=== PATIENT | male | born 1945 | race Caucasian/White ===

== ENCOUNTER 2018-04-06 09:54 | Inpatient (IN) | payer OTHER, MEDICARE, BC ==
[~2018-04-06] VITALS: Ht 172.7 cm; Wt 133.6 kg
[~2018-04-06 09:54] MED LIST: ALLO100 PO; ASPI81CH PO; ASPI81EC PO; ATOR20 PO; Amlodipine Besy10 MG PO; Ativan0.5 MG PO; BUME2 PO; CALCAVITD PO; DOCU100 PO; Desyrel50 MG PO; FISH1000 PO; HYDCHL12.5 PO; K-Dur20 MEQ PO; LOSA25 PO; Lasix20 MG PO; METO25 PO; OMEP20ER PO; OMEPRAZOLE MAGN20 MG PO; POTA10T PO; POTCHL10ER PO; TRAM50 PO; [UNRECOGNIZED DRUG - REMARK]
[2018-04-06 10:47] LABS: BASOPHILS ABSOLUTE AUTO 0.03 K/mm3 (0.00-0.23); BASOPHILS PERCENT AUTO 0 % (0-2); EOSINOPHILS ABSOLUTE AUTO 0.06 K/mm3 (0.00-0.68); EOSINOPHILS PERCENT AUTO 1 % (0-6); Hematocrit 50.7 % (37.0-53.0); Hemoglobin 17.6 g/dL (13.5-17.5); IMMATURE GRAN ABSOLUTE AUTO 0.03 K/mm3 (0.00-0.10); IMMATURE GRAN PERCENT AUTO 0 % (0-1); LYMPHOCYTES ABSOLUTE AUTO 1.04 K/mm3 (0.84-5.20); LYMPHOCYTES PERCENT AUTO 12 % (21-46); MONOCYTES ABSOLUTE AUTO 0.75 K/mm3 (0.16-1.47); MONOCYTES PERCENT AUTO 9 % (4-13); Mean Corpuscular HGB 28.8 pg (26.0-34.0); Mean Corpuscular HGB Conc 34.7 g/dL (31.5-36.5); Mean Corpuscular Volume 83 fL (80-100); Mean Platelet Volume 11.8 fL (9.1-12.4); NEUTROPHILS ABSOLUTE AUTO 6.58 K/mm3 (1.96-9.15); NEUTROPHILS PERCENT AUTO 78 % (41-73); Platelet Count 220 K/mm3 (150-400); RDW Coefficient Variation 13.2 % (11.7-14.2); RDW Standard Deviation 39.9 fL (35.1-46.3); Red Blood Cell Count 6.11 M/mm3 (4.30-5.90); White Blood Cell Count 8.49 K/mm3 (4.00-11.30)
[2018-04-06] MEDS ORDERED: ATOR20 PO (10:55)
[2018-04-06] MEDS ORDERED: BUME2 PO (10:56)
[2018-04-06] MEDS ORDERED: CIPR250 PO (10:57)
[2018-04-06] MEDS ORDERED: GABA300 PO (10:58)
[2018-04-06] MEDS ORDERED: ESCI5 PO (10:58)
[2018-04-06] MEDS ORDERED: METO2.5 PO (10:58)
[2018-04-06] MEDS ORDERED: NEOPOLDEXS (10:59)
[2018-04-06] MEDS ORDERED: TOPI25 PO (10:59)
[2018-04-06] MEDS ORDERED: Phentermine HCl15 MG PO (10:59)
[2018-04-06 11:07] LABS: Troponin I 0.186 ng/mL (0.000-0.040)
[2018-04-06 11:09] LABS: Albumin, Blood 3.7 g/dL (3.4-5.0); Albumin/Globulin Ratio 0.9 (0.8-1.8); Bilirubin, Total 1.3 mg/dL (0.1-1.0); Bun/Creatinine Ratio 19.8 (12.0-20.0); Creatinine, Blood 2.37 mg/dL (0.60-1.20); Globulin, Blood 4.3 g/dL (2.2-4.0); Potassium, Blood 3.1 mmol/L (3.5-5.5)
[2018-04-06 14:00] LABS: Glucose, Blood 655 mg/dL (70-99)
[2018-04-06 14:39] LABS: Glucose, Blood 537 mg/dL (70-99)
[2018-04-06 15:42] LABS: Glucose, Blood 393 mg/dL (70-99); Troponin I 0.195 ng/mL (0.000-0.040)
--- NOTE | 2018-04-06 15:42 | NUR ---
1345: PT TO ICU 3 FROM ER AT THIS TIME, REPORT RECEIVED. CARDIAC MONITORING INITIATED, INSULIN INFUSING AT 12.9U/HR FROM ER, POTASSIUM AND NS INFUSING PER ORDERS. PT AWAKE, A&OX4, REPORTS RLQ PAIN AND LEFT LE CRAMPING X3-4 DAYS, WELL N/V AND WEAKNESS. PT HAS FALLEN AT HOME 3 TIMES RECENTLY, NEW SCAR NOTED TO LEFT KNEE SECONDARY TO FALL AT HOME. HRR, LS CLEAR, DIM IN BASES, BT DECREASED, PT REPORTS LAST BM 02/01/19 WITH ASSISTANCE OF MAG OLIVEIRA, PT HAS BEEN REPORTEDLY CONSTIPATED FOR SOME TIME NOW. 1400: LAB REPORTS LAST GLUCOSE 655, INSULIN GTT AT 10U/HR, NEXT BLOOD GLUCOSE LEVEL DRAWN NOW. 1430: BLOOD GLUCOSE 537, NO CHANGES MADE TO INSULIN GTT. PT'S FAMILY AT BEDSIDE, PT CONTINUES TO C/O LE CRAMPING AND RLQ PAIN.
--- NOTE | 2018-04-06 15:56 | NUR ---
1555: 1500 GLUCOSE 393, INSULIN GTT DECREASED TO 5U/HR AT THIS TIME. PT CONTINUES TO SLEEP, VSS. NO COUGHING NOTED AT THIS TIME.
--- NOTE | 2018-04-06 16:08 | NUR ---
1600: CBG 287, INSULIN GTT DECREASED TO 1U/HR, DR. MAIER NOTIFIED OF CBG LEVEL. NEW ORDERS RECEIVED, DR. MAIER STATES TO "LEAVE INSULIN DRIP ON THROUGHOUT THE NIGHT." WILL CONTINUE TO MONITOR SUGARS Q1H.
--- NOTE | 2018-04-06 17:08 | NUR ---
1705: CBG 249, INSULIN GTT REMAINS AT 1U/HR, D5 0.45NS INFUSION INITIATED PER ORDERS FOR CBG <250. RT AT BEDSIDE TO SET UP PT'S HOME CPAP.
--- NOTE | 2018-04-06 17:18 | NUR ---
1715: SPO2 97%, OXYGEN DECREASED TO 5L/OXYMIZER. HR 70'S, PT DENIES SOB, C/O, OR NEEDS AT THIS TIME.
[2018-04-06 18:15] LABS: Bun/Creatinine Ratio 18.5 (12.0-20.0); Calcium, Blood 9.2 mg/dL (8.5-10.1); Creatinine, Blood 2.38 mg/dL (0.60-1.20); Potassium, Blood 3.4 mmol/L (3.5-5.5)
--- NOTE | 2018-04-06 18:33 | NUR ---
1800: CBG 255, INSULIN GTT INCREASED TO 2U/HR AT THIS TIME. FAMILY REMAINS AT BEDSIDE, PT DENIES NEEDS. 1824: PT C/O 10/03 LLE PAIN, STATES THE PAIN RADIATES INTO BUTTOCK, REPORTS HX OF BACK INJURY WITH SUBSEQUENT SCIATICA. PT MEDICATED WITH FENTANYL PER ORDERS. CPAP PLACED AT THIS TIME WITH 3L OXYGEN, SPO2 91%, PT RESTING WITH EYES CLOSED.
--- NOTE | 2018-04-06 19:02 | NUR ---
1900: CBG 306, INSULIN GTT INCREASED TO 4U/HR. PT SLEEPING, VSS WIHT CPAP, REPORT TO ONCOMING NURSE.
--- NOTE | 2018-04-06 20:00 | NUR ---
ASSUMING CARE RECEIVED PT REPORT FROM KELLEE FLETCHER PT IS ADMITTED DUE TO [facility]. PT IS ALERT AND ORIENTED AT THE TIME OF SHIFT REPORT. PT IS ON INSULIN GTT AT THE TIME CARE ASSUMED, INSULIN GTT IS RUNNING AT 4UNITS/HR. AFTER CARE ASSUMED INSULIN WAS INCREASED TO 5U/HR WITH NEXT CBG CHECK. PT IS ON HOME CPAP UNIT WHILE ASLEEP. PT IS RECEIVING 3L O2 THROUGH CPAP. PT HR IS MAINTAINING IN THE 70-80 RANGE. BP IS STABLE AT THIS TIME. PT IS RECEIVING D5 1/2 NS AT A RATE OF 200ML/HR. PT IS SOMEWHAT WEAK WITH TRANSFERS AND REQUIRES ASSISTANCE WITH TRANSFERS TO BEDSIDE COMMODE. PT IS A MOD ASSIST. PT IS ABLE TO REPOSITION SELF IN BED WITHOUT ASSISTANCE. ASSUMING CARE OF PT AT THE TIME OF SHIFT REPORT. WILL CONTINUE TO MONITOR PT.
[2018-04-07 04:23] LABS: BASOPHILS ABSOLUTE AUTO 0.04 K/mm3 (0.00-0.23); BASOPHILS PERCENT AUTO 0 % (0-2); EOSINOPHILS ABSOLUTE AUTO 0.23 K/mm3 (0.00-0.68); EOSINOPHILS PERCENT AUTO 2 % (0-6); Hematocrit 50.2 % (37.0-53.0); Hemoglobin 16.7 g/dL (13.5-17.5); IMMATURE GRAN ABSOLUTE AUTO 0.04 K/mm3 (0.00-0.10); IMMATURE GRAN PERCENT AUTO 0 % (0-1); LYMPHOCYTES ABSOLUTE AUTO 1.32 K/mm3 (0.84-5.20); LYMPHOCYTES PERCENT AUTO 13 % (21-46); MONOCYTES ABSOLUTE AUTO 0.83 K/mm3 (0.16-1.47); MONOCYTES PERCENT AUTO 8 % (4-13); Mean Corpuscular HGB 28.6 pg (26.0-34.0); Mean Corpuscular HGB Conc 33.3 g/dL (31.5-36.5); Mean Platelet Volume 11.4 fL (9.1-12.4); NEUTROPHILS ABSOLUTE AUTO 7.76 K/mm3 (1.96-9.15); NEUTROPHILS PERCENT AUTO 76 % (41-73); Platelet Count 205 K/mm3 (150-400); RDW Coefficient Variation 13.2 % (11.7-14.2); RDW Standard Deviation 41.3 fL (35.1-46.3); Red Blood Cell Count 5.84 M/mm3 (4.30-5.90); White Blood Cell Count 10.22 K/mm3 (4.00-11.30)
[2018-04-07 04:24] LABS: Mean Corpuscular Volume 86 fL (80-100)
[2018-04-07 04:50] LABS: Albumin, Blood 3.3 g/dL (3.4-5.0); Anion Gap 8 mmol/L (6-16); Blood Urea Nitrogen 40 mg/dL (8-24); CO2, Blood 33 mmol/L (21-32); Calcium, Blood 8.6 mg/dL (8.5-10.1); Chloride, Blood 91 mmol/L (98-108); Creatinine, Blood 2.11 mg/dL (0.60-1.20); Glomerular Filtration Rate 33 (60-); Glucose, Blood 189 mg/dL (70-99); Phosphorus, Blood 2.8 mg/dL (2.5-4.9); Potassium, Blood 2.9 mmol/L (3.5-5.5); Sodium, Blood 132 mmol/L (136-145)
--- NOTE | 2018-04-07 06:44 | NUR ---
SHIFT SUMMARY NOTE PT HAS REMAINED ALERT AND ORIENTED THROUGH THE NIGHT WHILE AWAKE. PT HAS USED HOME CPAP THROUGH THE NIGHT WHILE SLEEPING. CPAP CONTINUES TO HAVE 3L O2 BLEED IN. PT HAS BEEN ABLE TO APPLY AND REMOVE CPAP WITHOUT ASSISTANCE THROUGH THE NIGHT. PT REMAINS ON INSULIN GTT. INSULIN GTT IS CURRENTLY RUNNING AT 4 UNITS/HR. MOST RECENT CBG IS APPROX 204. PT REMAINS ON D5 1/2 NS AT 200ML/HR. PT IS RECEIVING KVL 40MEQ IV AT THIS TIME. PT WAS PROVIDED TYLENOL X1 FOR HEADACHE THROUGH THE NIGHT. PT VITALS HAVE REMAINED STABLE THROUGH THE NIGHT. WILL REPORT OFF TO [facility] DAY SHIFT NURSE.
--- NOTE | 2018-04-07 09:39 | NUR ---
0715: CARE ASSUMED, ASSESSMENT COMPLETED. PT RESTING IN BED, CPAP ON, VSS. PT REPORTS BILATERAL LEG CRAMPING 4/10, BUT QUICKLY FALLS BACK ASLEEP AFTER REPOSITIONING, NO PAIN MEDICATIONS ADMINISTERED AT THIS TIME. INSULING GTT AT 4U/HR, POTASSIUM AND D5 0.45%NS INFUSING PER ORDERS. PT ORIENTED X4, DROWSY. 0830: DR. MAIER AT BEDSIDE, PT AWAKE TO TALK TO DR, THEN FALLS BACK ASLEEP. 0930: FAMILY AT BEDSIDE, PT UP WITH P.T. IN ROOM, GOOD EFFORT, GAIT STEADY WITH WALKER AND 1 PERSON ASSIST. PT REMAINS SITTING AT BEDSIDE VISITING WITH FAMILY, ALERT AND ORIENTED X4, DENIES NEEDS OR C/O AT THIS TIME. DENIES PAIN, SPO2 92% ON RA.
--- NOTE | 2018-04-07 11:26 | NUR ---
1130: PT UP TO SHOWER, TOLERATED WELL, VSS UPON RETURN TO ROOM. INSULIN INFUSING AT 7U/HR AT THIS TIME. PT DENIES NEEDS, OXYGEN AT 1L/NC SPO2 DECREASES TO 89% WHILE LYING DOWN.
[2018-04-07 11:45] LABS: Source, Urine Voided
[2018-04-07 12:00] LABS: Bilirubin, Urine Neg (Neg); Blood, Urine 2+ (Neg); Glucose Qualitative, Urine 3+ (Neg); Ketones, Urine Neg (Neg); Leukocyte Esterase, Urine Neg (Neg); Nitrite, Urine Neg (Neg); Protein, Urine 2+ (Neg); Urobilinogen, Urine 2+ (Normal); pH, Urine 6.5 (5.0-8.0)
[2018-04-07 12:32] LABS: Appearance, Urine Clear (Clear); Bacteria Not Seen /hpf; Color, Urine Yellow (P-Yellow); Red Blood Cells, Urine 0-2 /hpf (0-2); Squamous Epithelial Cells Few /hpf (Few); White Blood Cells, Urine Not Seen /hpf (0-5)
--- NOTE | 2018-04-07 12:55 | NUR ---
1255: PT ATE 60% OF LUNCH, THEN BECAME NAUSEATED. TRAY REMOVED FROM BEDSIDE, PT UP TO BR FOR MED SOFT BM, THEN ASSISTED BACK TO BED. ZOFRAN ADMINISTERED FOR NAUSEA, TYLENOL ADMINISTERED FOR 6/10 HEADACHE. VSS, PT DENIES OTHER NEEDS, IS RESTING IN BED.
--- NOTE | 2018-04-07 13:30 | NUR ---
COVERING IDA GOODSON FOR LUNCH PT. FAMILY OUT TO NURSES STATION TO REQUEST PAIN MEDICATIONS FOR PT. PT. RESTLESS IN ROOM, REPORTS PAIN OF 8/10 TO ABD. MED FOR PAIN PER DR. BANKS.
--- NOTE | 2018-04-07 16:33 | NUR ---
1500: PT UP TO TOILET, LARGE LOOSE BM, REPORTS BM HAS RELIEVED SOME ABDOMINAL DISCOMFORT. PT BACK TO BED, VSS, SITTING UP AT THIS TIME, VISITORS IN TO SEE PT. 1600: CBG 177, INSULIN GTT DECREASED TO 12U/HR. 1630: AC AND SS INSULIN ADMINISTERED PER ORDERS. PT CONTINUES TO VISIT WITH FRIENDS/FAMILY, DENIES NEEDS.
--- NOTE | 2018-04-07 19:14 | NUR ---
1800: CBG 136, INSULIN GTT DECREASED TO 8U/HR. PT UP IN CHAIR EATING DINNER, DENIES C/O AT THIS TIME. VSS, FAMILY AT BEDSIDE. 1900: PT BACK TO BED AFTER DINNER, TOLERATED CHAIR WELL. VSS, DENIES NAUSEA AFTER EATING, CBG 181 AT THIS TIME, GTT INCREASED TO 10U/HR. REPORT TO ONCOMING NURSE.
--- NOTE | 2018-04-07 20:34 | NUR ---
ASSESSMENT PT AWAKE SITTING UP IN BED WATCHING TV. C/O PAIN TO LEFT LEG STATES,"I HAD A BACK INJURY IN THE PAST WHILE PLAYING FOOTBALL AND THE PAIN ACTS UP SOMETIMES". C/O PAIN 5/10 MED WITH FENTANYL 25 MCQ. PT STATES,"I'M FEELING BETTER THAN WHEN I CAME IN". LUNGS CLEAR BUT DECREASED IN THE BASES ON 2 LITERS O2 VIA NC. DENIES SOB OR COUGH. HEART RATE REGULAR, BP STABLE. EDEMA NOTED TO BILAT LOWER EXT. ABD DISTENDED AND FIRM, PT STATES,"THIS IS ABOUT NORMAL". DENIES N/V AT THIS TIME. INSULIN AT 10 UNITS WITH D5 1/2 NS AT 200 ML/HR. PT MOVING AND TURNING SELF IN BED
--- NOTE | 2018-04-07 21:03 | NUR ---
BLOOD GLUCOSE 163, INSULIN GTT CONT AT 10 UNITS/HR. LONG ACTING INSULIN LANTUS 30 UNITS GIVEN. WILL STOP INSULIN GTT AND IV FLUID AT 2300
--- NOTE | 2018-04-07 21:46 | NUR ---
PAIN/IV PT C/O PAIN TO LEFT LEG STATES," IT IS BETTER JUST A DULL ACHE NOW NOT SHARP BUT STILL 5/10". MED WITH TYLENOL. NEW IV PLACED RIGHT UPPER ARM 20 G. PT C/O BEING "HOT" COOL WASH CLOTH TO FOREHEAD AND PERSONAL FAN GIVEN
--- NOTE | 2018-04-07 23:03 | NUR ---
INSULIN GTT BLOOD GLUCOSE 130, TWO HOURS AFTER GIVING LONG ACTING INSULIN, INSULIN GTT DC'D AND D5 1/2 STOPPED. PT RESTING QUIETLY
--- NOTE | 2018-04-08 00:14 | NUR ---
REASSESSMENT BLOOD GLUCOSE 127. PT SLEEPING WITH CPAP ON. AWAKENS EASILY. LUNGS CLEAR BUT DECREASED IN THE BASES. PT DENIES PAIN OR DISCOMFORT. VSS. PT TURNING AND MOVING SELF IN BED. IV SALINE LOCKED.
--- NOTE | 2018-04-08 03:21 | NUR ---
REASSESSMENT PT AWAKE, DENIES PAIN. RESTING QUIELTY. LUNGS CLEAR BUT DECREASED IN THE BASES. CPAP ON WITH O2 AT 2 LITERS. LABS BEING DRAWN. VSS
--- NOTE | 2018-04-08 03:59 | NUR ---
NEW ORDERS PT AWAKE C/O INDIGESTION. CALL TO DR BOOTHE RECEIVED ORDER FOR MAALOX
[2018-04-08 04:04] LABS: Bun/Creatinine Ratio 16.8 (12.0-20.0); Calcium, Blood 8.3 mg/dL (8.5-10.1); Creatinine, Blood 1.73 mg/dL (0.60-1.20); Potassium, Blood 3.3 mmol/L (3.5-5.5)
--- NOTE | 2018-04-08 06:01 | NUR ---
PAIN PT AWAKE C/O HEADACHE 12/04, MED WITH TYLENOL AND COOL CLOTH APPLIED TO FOREHEAD.
--- NOTE | 2018-04-08 06:04 | NUR ---
SHIFT SUMMARY PT AWAKE MOST OF THE NIGHT. MED WITH TYLENOL AND FENTANYL FOR LEFT LEG PAIN, ABD PAIN AND HEADACHE. MED WITH ZOFRAN ONCE DURING THE NIGHT FOR C/O NAUSEA, WITH GOOD RESULTS. PT C/O INDIGESTION AND WAS GIVEN MAALOX. PT TAKEN OFF INSULIN GTT AND STARTED ON LONG ACTING INSULIN. IV FLUID STOPPED WHEN INSULIN DC'D. PT UP TO THE BATHROOM WITH WALKER AND STANDBY ASSIST WITHOUT DIFFICULTY. VSS. REPORT TO ON COMING NURSE
--- NOTE | 2018-04-08 11:25 | NUR ---
0700: CARE ASSUMED, PT SLEEPING WITH CPAP ON, VSS, NOT DISTURBED AT THIS TIME. 0800: PT TEACHING REGARDING INSULIN ADMINISTRATION AND REGIMEN PROVIDED BY THIS RN, PT ADMINISTERED OWN SQ INSULIN WITH GUIDANCE, DID WELL ALTHOUGH PT DOES NOT FULLY UNDERSTAND DOSING AND REGIMEN YET. WILL CONTINUE TO TEACH AND REINFORCE. 0830: DR. MAIER AT BEDSIDE, ASSESSMENT COMPLETED AT THIS TIME. PT AWAKE, ALERT AND ORIENTED, VSS, DENIES ABDOMINAL PAIN OR LEG DISCOMFORT AT THIS TIME. LS CLEAR, DIMINISHED IN BASES, HRR, BT+. PT ASSISTED TO BR, THEN BACK TO BED, GAIT STEADY. EDEMA TO BLE'S SEEMS TO BE INCREASING SLIGHTLY, PT STATES HE FEELS LIKE HE IS "WALKING ON SPONGES." 1045: PT UP TO BR TO VOID, THEN BACK TO BED. TELE DC'D AT THIS TIME PER ORDERS, PT MEDICAL STATUS. AT BEDSIDE, PT DENIES OTHER NEEDS.
--- NOTE | 2018-04-08 12:12 | NUR ---
1210: PT ADMINISTERED OWN INSULIN WITH GUIDANCE, AT BEDSIDE FOR INSULIN ADMINISTRATION TEACHING WELL. PT NOW SITTING UP AT EDGE OF BED EATING LUNCH, VSS.
[2018-04-08] MEDS ORDERED: BUME2 PO (13:44)
[2018-04-08] MEDS ORDERED: ALLO300 PO (13:47)
[2018-04-08] MEDS ORDERED: 24 HOUR ALLER15.8 ML (13:53)
[2018-04-08] MEDS ORDERED: ABAT250V (13:53)
--- NOTE | 2018-04-08 14:09 | NUR ---
1400: PT STATES HE FEELS BLOATED AFTER LUNCH, DENIES NAUSEA OR ABDOMINAL PAIN. DIETITION AT BEDSIDE FOR DIABETIC TEACHING WITH PT AND HIS .
--- NOTE | 2018-04-08 17:06 | NUR ---
1600: PT UP TO BR, THEN TO CHAIR TO SIT UP FOR A WHILE. PT SELF ADMINISTERED INSULIN, IS DOING WELL WITH SUPPORT AND GUIDANCE. VSS, PT AFEBRILE, DENIES PAIN OR C/O. TEETH BRUSHED, FACE WASHED, PT RELAXING IN RECLINER WITH FEET UP WATCHING FOOTBALL.
--- NOTE | 2018-04-08 18:34 | NUR ---
1800: PT FINISHED DINNER WITHOUT DIFFICULTY, ASSISTED UP TO BR, THEN BACK TO BED. CPAP ON, LIGHTS TURNED OFF PER PT REQUEST, PT STATES HE IS GOING TO REST, DENIES PAIN OR NAUSEA AT THIS TIME. GAIT REMAINS STEADY WITH WALKER. 1830: REPORT TO ONCOMING SHIFT.
--- NOTE | 2018-04-08 19:27 | NUR ---
ASSESSMENT PT AWAKE MOVING SELF AROUND IN BED. C/O BILAT LEG PAIN STATES,"IT IS A 10/03 UST ACHE". PT TAKES GABAPENTIN EVERY NIGHT AT HOME. PT MED WITH TYLENOL AND CALL TO DR PETERSEN FOR GABAPENTIN. PT ALSO REQUESTED SOMETHING FOR SLEEP. DR PETERSEN SAID JUST GIVE HIM HIS GABAPENTIN FOR NOW. LUNGS CLEAR DECREASED IN THE BASES ON ROOMAIR. RESP EVEN AND NONLABORED. HEART RATE REGULAR, BP STABLE. 1+ PEDAL EDEMA TO BILAT LOWER EXT. BT+ ABD SOFT AND NONTENDER. IV'S SALINE LOCKED
--- NOTE | 2018-04-08 20:15 | NUR ---
DIABETIC TEACHING BLOOD GLUCOSE 226, INSTRUCTED PT ON USE OF LANTUS PEN DIALING UP DOSE AND INJECTING INSULIN WITH A PEN. EXPLAINED LANTUS, PT STATES,"THAT'S THE LONG ACTING RIGHT"? PT INJECTED SELF WITH ASSISTANCE AND EXPLAINATION TO RIGHT ABD WITH LONG ACTING. THAN EXPLAINED SLIDING SCALE INSULIN AND HOW TO OBTAIN CORRECT DOSE. PT ABLE TO DIAL UP INSULIN WITH MIN INSTRUCTION AND GIVE IN LEFT ABD. PT ALSO GIVEN HS MEDS WITH GABAPENTIN. EXPLAINED THAT DR HUTTON WANTED HIM TO HAVE HIS GABAPENTIN FOR PAIN BEFORE STARTING NARCOTICS OR SLEEPING MEDS. PT UP TO TOILET WITH STANDBY ASSIST AND WALKER. VOIDED THAN BACK TO BED
--- NOTE | 2018-04-08 22:03 | NUR ---
TRANSFER PT TO TRANSFER TO ROOM 229.
--- NOTE | 2018-04-08 22:09 | NUR ---
REPORT REPORT GIVEN TO QUE. PT TO TRANSFER VIA WHEELCHAIR
--- NOTE | 2018-04-08 22:34 | NUR ---
PT TX TO ROOM 229 FROM ICU 3. PT A/O, VSS. LUNGS CLEAR/DIM IN BASES. PT DENIES PAIN/N/V. PT ORIENTED TO ROOM/UNIT. PT PLACED HOME CPAP ON. PT DENIES FURTHER NEEDS AT THIS TIME. CALL LIGHT IN REACH, WILL CONT TO MONITOR.
[2018-04-09] MEDS ORDERED: BUME2 PO (11:10)
[2018-04-09] MEDS ORDERED: Humalog Mi100 UNIT/4 SC (11:11)
[2018-04-09] MEDS ORDERED: INSULANPEN SC (11:12)
[2018-04-09] MEDS ORDERED: HUMALOG KW200 UNIT/1 SC (11:14)
--- NOTE | 2018-04-09 12:24 | NUR ---
DISCHARGE SUMMARY PT A&OX4, VSS, LEFT FLOOR VIA WC WITH ESCORT, TO GO HOME WITH , WITH ALL PERSONAL POSSESSIONS INCLUDING DISCHARGE PACKET INCLUDING DIABETIC EDU. DISCHARGE INSTRUCTIONS PROVIDED. PT AND REP UNDERSTANDING THOSE INSTRUCTIONS INCLUDING DEMONSTRATING HOW TO INJECT INSULIN, USE PEN, USE SLIDING SCALE, ORDERS FOR INSULING AC/HS, FU APPTS WITH PCP, MELISSA THAT ARE ALREADY SCHEDULED FOR THIS COMING & NEXT WEEK, DIET CHANGES, FEET CARE & PODIATRY FOR HEALTHY FEET/NAIL CARE. 2 IV DC'D.
== END 2018-04-09 12:00 | disposition home or self-care (01) | DRG 637 ==
LOC: ER 09:54 → ICUW 11:44 → ICUE 13:31 → SURS 14:03 → ICUE 04-08 10:45 → SURS 04-08 22:17
PROVIDERS: Emergency Medicine; Family Medicine; ADMIT Hospitalist
PROC: 5A09457 Assistance with Respiratory Ventilation, 24-96 Consecutive Hours, Continuous Positive Airway Pressure (ICD-10-PCS; principal; 2018-04-06)
DX: E11.01 Type 2 diabetes mellitus with hyperosmolarity with coma (principal); G92 Toxic encephalopathy; N17.9 Acute kidney failure, unspecified; I13.0 Hypertensive heart and chronic kidney disease with heart failure and stage 1 through stage 4 chronic kidney disease, or unspecified chronic kidney disease; I50.32 Chronic diastolic (congestive) heart failure; E87.1 Hypo-osmolality and hyponatremia; I24.8 Other forms of acute ischemic heart disease; Z68.41 Body mass index [BMI] 40.0-44.9, adult; N18.3 Chronic kidney disease, stage 3 (moderate); E11.22 Type 2 diabetes mellitus with diabetic chronic kidney disease; Z79.4 Long term (current) use of insulin; E87.6 Hypokalemia; E66.01 Morbid (severe) obesity due to excess calories; G47.33 Obstructive sleep apnea (adult) (pediatric); I09.9 Rheumatic heart disease, unspecified; Z87.891 Personal history of nicotine dependence
CPT/HCPCS: 36415; 71046; 74176; 80048; 80053; 80069; 81001; 82947; 83036; 83690; 84484; 85025; 93005; 93010; 96361; 96365; 96375; 97110; 97161; 99285-25; J1644; J1815; J2405; J3010; J3480; J7030; J7042; J7120

== ENCOUNTER → 2018-04-13 | Outpatient (CLI) | payer MEDICARE, BC ==
[~2018-04-13] MED LIST changes: +24 HOUR ALLER15.8 ML; +ABAT250V; +ALLO300 PO; +CIPR250 PO; +ESCI5 PO; +GABA300 PO; +HUMALOG KW200 UNIT/1 SC; +Humalog Mi100 UNIT/4 SC; +INSULANPEN SC; +METO2.5 PO; +NEOPOLDEXS; +Phentermine HCl15 MG PO; +TOPI25 PO; +XARELTO20 MG PO
[2018-04-13 12:07] LABS: Source, Urine Clean Catch
[2018-04-13 12:54] LABS: Bilirubin, Urine Neg (Neg); Blood, Urine Neg (Neg); Glucose Qualitative, Urine Neg (Neg); Ketones, Urine Neg (Neg); Leukocyte Esterase, Urine Neg (Neg); Nitrite, Urine Neg (Neg); Protein, Urine Neg (Neg); Urobilinogen, Urine NORM (Normal)
[2018-04-13 13:20] LABS: Appearance, Urine Clear (Clear); Color, Urine Yellow (P-Yellow)
== END ==
LOC: LAB 12:05 → LAB SHORT 12:05
PROVIDERS: Internal Medicine Cardiovascular Disease
DX: E11.9 Type 2 diabetes mellitus without complications (principal); R30.0 Dysuria
CPT/HCPCS: 81003; 87086

== ENCOUNTER 2018-04-18 17:00 | Inpatient (IN) | payer OTHER, MEDICARE, BC ==
[~2018-04-18] VITALS: Ht 172.7 cm; Wt 116.7 kg
[~2018-04-18 17:00] MED LIST changes: -XARELTO20 MG PO
[2018-04-18 19:06] LABS: BASOPHILS ABSOLUTE AUTO 0.03 K/mm3 (0.00-0.23); BASOPHILS PERCENT AUTO 0 % (0-2); EOSINOPHILS ABSOLUTE AUTO 0.15 K/mm3 (0.00-0.68); EOSINOPHILS PERCENT AUTO 2 % (0-6); Hematocrit 45.4 % (37.0-53.0); Hemoglobin 15.2 g/dL (13.5-17.5); IMMATURE GRAN ABSOLUTE AUTO 0.02 K/mm3 (0.00-0.10); IMMATURE GRAN PERCENT AUTO 0 % (0-1); LYMPHOCYTES ABSOLUTE AUTO 1.44 K/mm3 (0.84-5.20); LYMPHOCYTES PERCENT AUTO 19 % (21-46); MONOCYTES ABSOLUTE AUTO 0.93 K/mm3 (0.16-1.47); MONOCYTES PERCENT AUTO 12 % (4-13); Mean Corpuscular HGB Conc 33.5 g/dL (31.5-36.5); Mean Corpuscular Volume 87 fL (80-100); Mean Platelet Volume 10.4 fL (9.1-12.4); NEUTROPHILS ABSOLUTE AUTO 5.13 K/mm3 (1.96-9.15); NEUTROPHILS PERCENT AUTO 67 % (41-73); Platelet Count 226 K/mm3 (150-400); RDW Coefficient Variation 13.6 % (11.7-14.2); RDW Standard Deviation 43.1 fL (35.1-46.3); Red Blood Cell Count 5.25 M/mm3 (4.30-5.90)
[2018-04-18 19:27] LABS: Magnesium, Blood 2.2 mg/dL (1.6-2.4)
[2018-04-18 19:39] LABS: Albumin, Blood 3.1 g/dL (3.4-5.0); Albumin/Globulin Ratio 0.8 (0.8-1.8); Bilirubin, Total 0.7 mg/dL (0.1-1.0); Bun/Creatinine Ratio 25.2 (12.0-20.0); Calcium, Blood 8.8 mg/dL (8.5-10.1); Creatinine, Blood 2.06 mg/dL (0.60-1.20); Globulin, Blood 3.8 g/dL (2.2-4.0); Potassium, Blood 2.8 mmol/L (3.5-5.5); Total Protein, Blood 6.9 g/dL (6.4-8.2)
[2018-04-18 21:06] LABS: International Normalized Ratio 1.08; Prothrombin Time Results 11.4 Sec (9.7-11.5)
--- NOTE | 2018-04-19 05:56 | NUR ---
SHIFT SUMMARY: PATIENT ARRIVED TO ROOM PCU4 VIA GURNEY, ABLE TO AMBULATE FROM GURNEY TO BED WITHOUT ASSIST. SKIN C/D/I, VSS, ADMISSION AND ASSESSMENT COMPLETED. PATIENT ORIENTED TO HOSPITAL POLICIES AND CALL LIGHT. PATIENT UNABLE TO TOLERATE SECOUND BAG OF POTASSIUM CHLORIDE, RECIEVED 1 BAG AND AN ORAL DOSE. HEPERAIN DRIP RUNNING PER ORDER. NO OTHER ISSUES NOTED, BED LOW AND LOCKED AND CALL LIGHT WITHIN REACH.
[2018-04-19 07:05] LABS: Hematocrit 45.4 % (37.0-53.0); Hemoglobin 14.8 g/dL (13.5-17.5); Mean Corpuscular HGB 28.3 pg (26.0-34.0); Mean Corpuscular HGB Conc 32.6 g/dL (31.5-36.5); Mean Corpuscular Volume 87 fL (80-100); Mean Platelet Volume 10.7 fL (9.1-12.4); Platelet Count 204 K/mm3 (150-400); RDW Coefficient Variation 13.7 % (11.7-14.2); Red Blood Cell Count 5.23 M/mm3 (4.30-5.90); White Blood Cell Count 6.98 K/mm3 (4.00-11.30)
[2018-04-19 07:29] LABS: Bun/Creatinine Ratio 26.4 (12.0-20.0); Calcium, Blood 8.5 mg/dL (8.5-10.1); Creatinine, Blood 1.78 mg/dL (0.60-1.20); Potassium, Blood 2.8 mmol/L (3.5-5.5)
--- NOTE | 2018-04-19 07:45 | NUR ---
NURSING PCU DAYSHIFT: Assumed care of pt at approx 0700. A/O, pleasant, cooperative w/care. Denies any pain/discomfort. Skin is intact w/no breakdown noted. Ambulates independently w/o difficulty. C/O BLE numbness/tingling. Tele in place, aflutter, HR 100-110, no c/o CP/pressure, no noted edema. L/S dim t/o, respirations shallow, occ productive cough, O2 sat low 90's w/CPAP on RA, continuous bedside O2 monitoring. Abd SNT, BT+, voiding w/o difficulty per pt. PIV x1, hep gtt infusing at 12.5u/kg/hr (23.3 mls/hr) as per pharmacy dosing. No s/s of acute distress at this time. Awaiting rounding from PMD and outside sales account manager. Pt denies any current needs or questions regarding plan of care. Call light in reach, cont to monitor for any changes.
--- NOTE | 2018-04-19 17:35 | NUR ---
NURSING PCU DAYSHIFT SUMMARY: Pt remained stable t/o the shift. Seen by benefits counselor, planned for RADHA once K+ improved, PO K+ provided and labs redrawn. K+ increased to 3.4, RADHA scheduled for 1300 w/anesthesiology in room. During procedure it was noted that the pt had a possible blood clot and that a cardioversion was not possible. See anesthesiology record for procedure information. Pt recovered well and w/o difficulty. After School Program Teacher met w/family and pt in afternoon once pt was awake. Pt started on PO anticoagulants, hep gtt discontinued 1 hour after PO administration as per d/o. Denies any current questions/needs. Call light in reach and pt is able to use w/o difficulty, cont to monitor until rpt is given to NOC RN.
--- NOTE | 2018-04-20 07:41 | NUR ---
PCU NOC SHIFT SUMMARY PATIENT SLEPT WELL T/O SHIFT. ALERT AND ORIENTED X4. DENIES ANY CHEST PAIN T/O SHIFT. REMAINED IN AFLUTTER AT 90'S RATE. NO ACUTE CHANGES. VSS. PATIENT HOPING TO D/C HOME TODAY. REPORTED OFF TO DAYSHIFT KELLEE BUTCHER.
[2018-04-20] MEDS ORDERED: METO25 PO (10:13)
[2018-04-20] MEDS ORDERED: XARELTO20 MG PO (10:14)
--- NOTE | 2018-04-20 10:14 | NUR ---
PT PLEASANT COOP A.O. DENIES PAIN AT THIS TIME. H/R IRREG, NO MURMER NOTED. PER TELE. AFLUTTER AT 90. LUNGS CLEAR, RESP EASY, UNLABORED. ON R.A. BT X4 LAST BM YEST. ABD LARGE. OBESE. PT STATES NORM. VOIDS BATHROOOM. BED IN LOW POSITION, CALL LITE IN REACH, CALLS APPROP. INDEPENDANT IN ROOM. PT STATES HOME TODAY.
--- NOTE | 2018-04-20 11:04 | NUR ---
1100 DISCHARGE REVIEWD WITH PT. MEDS AND INSTRUCTIONS AND DR DANGELO. PT VERBVALIZED UNDERSTANDING. IV PULLED INTACT. TELE REMOVED PT WHEELED OUT DOOR AT 1100 BY AIDE.
== END 2018-04-20 11:09 | disposition home or self-care (01) | DRG 309 ==
LOC: ER 17:00 → PCU 19:56
PROVIDERS: Emergency Medicine; Nurse Practitioner Acute Care; ADMIT Hospitalist
DX: I48.91 Unspecified atrial fibrillation (principal); I50.32 Chronic diastolic (congestive) heart failure; I13.0 Hypertensive heart and chronic kidney disease with heart failure and stage 1 through stage 4 chronic kidney disease, or unspecified chronic kidney disease; Z68.41 Body mass index [BMI] 40.0-44.9, adult; N17.9 Acute kidney failure, unspecified; E66.01 Morbid (severe) obesity due to excess calories; N18.3 Chronic kidney disease, stage 3 (moderate); E78.5 Hyperlipidemia, unspecified; E11.22 Type 2 diabetes mellitus with diabetic chronic kidney disease; E87.6 Hypokalemia; G47.33 Obstructive sleep apnea (adult) (pediatric); I08.0 Rheumatic disorders of both mitral and aortic valves; F32.9 Major depressive disorder, single episode, unspecified; Z88.8 Allergy status to other drugs, medicaments and biological substances; Z95.2 Presence of prosthetic heart valve; Z87.891 Personal history of nicotine dependence; Z99.89 Dependence on other enabling machines and devices; Z79.82 Long term (current) use of aspirin; Z79.4 Long term (current) use of insulin; Z79.51 Long term (current) use of inhaled steroids; Z79.899 Other long term (current) drug therapy
CPT/HCPCS: 36415; 71045; 80048; 80053; 82947; 83735; 83880; 84132; 84484; 85025; 85027; 85610; 85730; 93005; 93010; 93312; 93325; 94660; 94762; 99285-25; J1644; J2370; J3480

== ENCOUNTER 2018-11-14 15:03 | Inpatient (IN) | payer MEDICARE, BC ==
[~2018-11-14] VITALS: Ht 172.7 cm; Wt 122.5 kg
[~2018-11-14 15:03] MED LIST changes: +XARELTO1 EACH PO
[2018-11-14 15:23] LABS: BASOPHILS ABSOLUTE AUTO 0.01 K/mm3 (0.00-0.23); BASOPHILS PERCENT AUTO 0 % (0-2); EOSINOPHILS ABSOLUTE AUTO 0.12 K/mm3 (0.00-0.68); EOSINOPHILS PERCENT AUTO 2 % (0-6); Hematocrit 42.8 % (37.0-53.0); IMMATURE GRAN ABSOLUTE AUTO 0.01 K/mm3 (0.00-0.10); IMMATURE GRAN PERCENT AUTO 0 % (0-1); LYMPHOCYTES PERCENT AUTO 15 % (21-46); MONOCYTES ABSOLUTE AUTO 0.63 K/mm3 (0.16-1.47); MONOCYTES PERCENT AUTO 12 % (4-13); Mean Corpuscular HGB 28.8 pg (26.0-34.0); Mean Corpuscular HGB Conc 32.7 g/dL (31.5-36.5); Mean Corpuscular Volume 88 fL (80-100); Mean Platelet Volume 12.2 fL (9.1-12.4); NEUTROPHILS ABSOLUTE AUTO 3.68 K/mm3 (1.96-9.15); NEUTROPHILS PERCENT AUTO 70 % (41-73); Platelet Count 107 K/mm3 (150-400); RDW Coefficient Variation 17.2 % (11.7-14.2); RDW Standard Deviation 54.6 fL (35.1-46.3); Red Blood Cell Count 4.86 M/mm3 (4.30-5.90); White Blood Cell Count 5.25 K/mm3 (4.00-11.30)
[2018-11-14 15:42] LABS: Albumin, Blood 3.7 g/dL (3.4-5.0); Bilirubin, Total 0.8 mg/dL (0.1-1.0); Bun/Creatinine Ratio 19.2 (12.0-20.0); Calcium, Blood 8.1 mg/dL (8.5-10.1); Creatinine, Blood 1.82 mg/dL (0.60-1.20); Globulin, Blood 3.6 g/dL (2.2-4.0); Potassium, Blood 3.6 mmol/L (3.5-5.5); Total Protein, Blood 7.3 g/dL (6.4-8.2)
[2018-11-14] MEDS ORDERED: LEVSOD75 PO (15:55)
[2018-11-14] MEDS ORDERED: TAGRISSO80 MG PO ×2 (16:25→20:09)
[2018-11-14] MEDS ORDERED: Lopressor 25 mg25 MG PO (16:29)
--- NOTE | 2018-11-14 18:25 | NUR ---
RECEIVED REPORT FROM KELLEE MOON
--- NOTE | 2018-11-15 05:28 | NUR ---
SHIFT SUMMARY PT NEW ED ADMIT AT START OF SHIFT. PLEASANT AND COOPERATIVE. PT HAS HAD HEADACHE THROUGHOUT THE NIGHT. PT ALSO PAINFUL ON HEAD WHERE LACERATIONS OCCURED AND BEVERLEY WERE PLACED. IN ADDITION PT REPORTS HE HAS CHRONIC PAIN R/T RECENT DIAGNOSIS OF LUNG/BONE CA. MEDICATED PER EMAR. PT SLEPT OFF AND ON. APPEARED VERY EARLY IN SHIFT BUT WOKE WITH SOME WORK AND WAS A/O ONCE AWAKE. NEURO CHECKS NEGATIVE EXCEPT HEADACHES. BLOOD SUGAR 84 THIS EVENING, INSULIN HELD. REDNESS TO ADIA AREA. NYSTATIN POWDER APPLIED. HOME CPAP AT BEDSIDE. PT WORE THROUGHOUT THE NIGHT. SMALL AMOUNT OF BLOOD FROM LACERATIONS ON HEAD. VSS. PT RESTING WELL AT THIS TIME. WILL CONTINUE TO MONITOR AND REPORT TO DAY RN.
--- NOTE | 2018-11-15 08:55 | NUR ---
ELIQUIS NOT ACTUALLY GIVEN YET. WILL WAIT FOR CT RESULTS.
--- NOTE | 2018-11-15 09:14 | NUR ---
THE RADIOLOGIST CALLED ME RESULTSF CT HEAD. I TOLD DR. BOWEN WHAT HE SAID. SHE IS CALLING THE RADIOLOGIST.
--- NOTE | 2018-11-15 12:48 | NUR ---
HE HAS HAD 2 COMPLAINTS THIS AM, A H/A AND L FOOT GOUT PAIN. I THOUGHT HE INDICATED HIS R FOOT BUT I WAS MISTAKEN. THE GOUT PAIN HAS BEEN WORSE THAN THE H/A. HE HAS MILD BLEEDING FROM HIS 2 DORSAL SCALP LACERATIONS. ARRANGED FOR A COBRA TRANSFER TO [facility]. HIS AND MULTIPLE FAMILY MEMBERS ARRIVED TO VISIT BEFORE HE LEFT. VSS. A&O. RAJI. AMBULATORY BUT KEPT ON BEDREST WITH BSC AFTER AM CT REPORT. HE HAD 2 LIQUID STOOLS THIS AM AND 2 UNMEASURED VOIDS. HE USED HIS OWN CPAP MOST OF THE MORNING. HE ATE BREAKFAST WELL. HE HAD NO LUNCH. CBG'S STABLE. HE RECEIVED A DOSE OF KCENTRA AND A DOSE OF KEPPRA. BOTH WERE INTRAVENOUS. REPORT HAS BEEN GIVEN TO EMS AND TO ASHLYN BECKMAN AT [facility]. TRANSFERRED TO [facility] BY AMBULANCE AT 1238.
== END 2018-11-15 12:34 | disposition short-term general hospital (02) | DRG 86 ==
LOC: ER 15:03 → MEDS 15:04
PROVIDERS: Emergency Medicine; ADMIT Family Medicine
PROC: 0HQ0XZZ Repair Scalp Skin, External Approach (ICD-10-PCS; principal; 2018-11-15)
PROC: 30283B1 Transfusion of Nonautologous 4-Factor Prothrombin Complex Concentrate into Vein, Percutaneous Approach (ICD-10-PCS; 2018-11-15)
DX: S06.6X1A Traumatic subarachnoid hemorrhage with loss of consciousness of 30 minutes or less, initial encounter (principal); I13.0 Hypertensive heart and chronic kidney disease with heart failure and stage 1 through stage 4 chronic kidney disease, or unspecified chronic kidney disease; I50.32 Chronic diastolic (congestive) heart failure; C34.90 Malignant neoplasm of unspecified part of unspecified bronchus or lung; Z68.41 Body mass index [BMI] 40.0-44.9, adult; W19.XXXA Unspecified fall, initial encounter; E66.01 Morbid (severe) obesity due to excess calories; G47.33 Obstructive sleep apnea (adult) (pediatric); I48.2 Chronic atrial fibrillation; N18.3 Chronic kidney disease, stage 3 (moderate); E11.22 Type 2 diabetes mellitus with diabetic chronic kidney disease; Z79.4 Long term (current) use of insulin; Z79.01 Long term (current) use of anticoagulants; I05.0 Rheumatic mitral stenosis; F17.220 Nicotine dependence, chewing tobacco, uncomplicated; Z66 Do not resuscitate; D69.6 Thrombocytopenia, unspecified; R40.2142 Coma scale, eyes open, spontaneous, at arrival to emergency department; R40.2252 Coma scale, best verbal response, oriented, at arrival to emergency department; R40.2352 Coma scale, best motor response, localizes pain, at arrival to emergency department; Z86.711 Personal history of pulmonary embolism; S01.01XA Laceration without foreign body of scalp, initial encounter
CPT/HCPCS: 36415; 70450; 71045; 72125; 80053; 82947; 85025; 93005; 93010; 94660; 94762; 96360; 96361; 96374; 96376; 99285-25; A9270; C9132; G0378; J1815; J1953; J3010; J7030

== ENCOUNTER 2018-11-27 13:37 | Emergency (ER) | payer MEDICARE, BC ==
[~2018-11-27] VITALS: Ht 172.7 cm; Wt 117.9 kg
[~2018-11-27 13:37] MED LIST changes: +LEVSOD75 PO; +Lopressor 25 mg25 MG PO; +TAGRISSO80 MG PO
[2018-11-27 14:23] LABS: BASOPHILS ABSOLUTE AUTO 0.01 K/mm3 (0.00-0.23); BASOPHILS PERCENT AUTO 0 % (0-2); EOSINOPHILS ABSOLUTE AUTO 0.07 K/mm3 (0.00-0.68); EOSINOPHILS PERCENT AUTO 1 % (0-6); Hematocrit 44.7 % (37.0-53.0); Hemoglobin 14.5 g/dL (13.5-17.5); IMMATURE GRAN ABSOLUTE AUTO 0.01 K/mm3 (0.00-0.10); IMMATURE GRAN PERCENT AUTO 0 % (0-1); LYMPHOCYTES ABSOLUTE AUTO 0.96 K/mm3 (0.84-5.20); LYMPHOCYTES PERCENT AUTO 14 % (21-46); MONOCYTES ABSOLUTE AUTO 0.73 K/mm3 (0.16-1.47); MONOCYTES PERCENT AUTO 10 % (4-13); Mean Corpuscular HGB 28.2 pg (26.0-34.0); Mean Corpuscular HGB Conc 32.4 g/dL (31.5-36.5); Mean Corpuscular Volume 87 fL (80-100); Mean Platelet Volume 10.8 fL (9.1-12.4); NEUTROPHILS ABSOLUTE AUTO 5.23 K/mm3 (1.96-9.15); NEUTROPHILS PERCENT AUTO 75 % (41-73); Platelet Count 159 K/mm3 (150-400); RDW Coefficient Variation 16.4 % (11.7-14.2); RDW Standard Deviation 51.9 fL (35.1-46.3); Red Blood Cell Count 5.14 M/mm3 (4.30-5.90); White Blood Cell Count 7.01 K/mm3 (4.00-11.30)
[2018-11-27 14:36] LABS: International Normalized Ratio 1.03; Prothrombin Time Results 10.9 Sec (9.7-11.5)
[2018-11-27 14:37] LABS: Albumin, Blood 3.9 g/dL (3.4-5.0); Albumin/Globulin Ratio 1.1 (0.8-1.8); Bilirubin, Total 0.6 mg/dL (0.1-1.0); Bun/Creatinine Ratio 20.1 (12.0-20.0); Creatinine, Blood 1.59 mg/dL (0.60-1.20); Globulin, Blood 3.7 g/dL (2.2-4.0); Potassium, Blood 3.8 mmol/L (3.5-5.5); Total Protein, Blood 7.6 g/dL (6.4-8.2)
[2018-11-27] MEDS ORDERED: Augmentin 875-1 EACH PO (17:18)
== END 2018-11-27 18:04 | disposition home or self-care (01) ==
LOC: ER 13:37
PROVIDERS: Emergency Medicine
DX: S06.6X9A Traumatic subarachnoid hemorrhage with loss of consciousness of unspecified duration, initial encounter (principal); H72.91 Unspecified perforation of tympanic membrane, right ear; I13.0 Hypertensive heart and chronic kidney disease with heart failure and stage 1 through stage 4 chronic kidney disease, or unspecified chronic kidney disease; E11.22 Type 2 diabetes mellitus with diabetic chronic kidney disease; N18.9 Chronic kidney disease, unspecified; I50.9 Heart failure, unspecified; E03.9 Hypothyroidism, unspecified; Z91.09 Other allergy status, other than to drugs and biological substances; Z88.8 Allergy status to other drugs, medicaments and biological substances; Z79.899 Other long term (current) drug therapy; Z79.4 Long term (current) use of insulin; Z79.82 Long term (current) use of aspirin
CPT/HCPCS: 36415; 70450; 80053; 85025; 85610; 85730; 93005; 93010; 96374; 96375; 99284-25; J1200; J1885; J2765